=== PATIENT | female | born 1945 | race Caucasian/White ===

== ENCOUNTER → 2022-03-20 | Outpatient (CLI) | payer MEDICARE, BC ==
[~2022-03-20] MED LIST: ATEN50TA2 PO; ESOM40CA35 PO; HOME MED LIST COMPLETE! XX SCH; LIDOCAINE 1% MDV 20ML VIAL As Ordered ONE; NAPR220C23 PO; OTEZ1TAB3 PO; SYNT25TA PO; VITMTA PO; ZOLP6.2517 PO
[2022-03-20 11:30] VITALS: BP 151/66
== END ==
LOC: M IRPRO 07:39
PROVIDERS: ATTEND Internal Medicine Hematology & Oncology
DX: C91.10 Chronic lymphocytic leukemia of B-cell type not having achieved remission (principal); E03.9 Hypothyroidism, unspecified; I10 Essential (primary) hypertension; K21.9 Gastro-esophageal reflux disease without esophagitis; L40.9 Psoriasis, unspecified